=== PATIENT | male | born 1980 | race African-American/Black ===

== ENCOUNTER 2018-02-16 09:29 | Emergency (ER) | payer MEDICAID, OTHER ==
[~2018-02-16] VITALS: Ht 167.6 cm; Wt 77.6 kg
[2018-02-16 09:33] VITALS: BP 106/60; PULSE 78; RESP 20; Ht 167.6 cm; Wt 77.6 kg
[2018-02-16] MEDS ORDERED: GUAI-637 PO (09:57)
[2018-02-16] MEDS ORDERED: SODI126M NASAL (09:57)
[2018-02-16] MEDS ORDERED: IBUP-1542 PO (09:57)
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
== END 2018-02-16 10:27 | disposition home or self-care (01) ==
LOC: FTE 09:29
DX: J06.9 Acute upper respiratory infection, unspecified (principal); R40.2412 Glasgow coma scale score 13-15, at arrival to emergency department
CPT/HCPCS: 99282

== ENCOUNTER 2018-04-27 16:56 | Emergency (ER) | payer OTHER ==
[~2018-04-27] VITALS: Ht 180.3 cm; Wt 74.5 kg
[~2018-04-27 16:56] MED LIST: GUAI-637 PO; IBUP-1542 PO; SODI126M NASAL
[2018-04-27 17:13] VITALS: Ht 180.3 cm; Wt 74.5 kg
[2018-04-27] MEDS ORDERED: IBUP800T48 PO (17:57)
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
[2018-04-27 18:31] VITALS: BP 120/77; PULSE 77; RESP 16
== END 2018-04-27 18:31 | disposition home or self-care (01) ==
LOC: FTE 16:56
DX: M54.2 Cervicalgia (principal); M54.6 Pain in thoracic spine; Z87.891 Personal history of nicotine dependence
CPT/HCPCS: 99282

== ENCOUNTER 2018-10-17 11:42 | Emergency (ER) | payer OTHER ==
[~2018-10-17] VITALS: Ht 180.3 cm; Wt 72.7 kg
[~2018-10-17 11:42] MED LIST changes: +CIPR500T4 PO; +IBUP800T48 PO; +METR500T PO; +ONDA4TAB14 PO
[2018-10-17 11:45] VITALS: Ht 180.3 cm; Wt 72.7 kg
[2018-10-17 12:41] VITALS: BP 101/59; PULSE 65; RESP 18
== END 2018-10-17 12:44 | disposition home or self-care (01) ==
LOC: E/R 11:42
DX: K52.9 Noninfective gastroenteritis and colitis, unspecified (principal)
CPT/HCPCS: 99283

== ENCOUNTER 2018-11-10 11:27 | Emergency (ER) | payer OTHER ==
[~2018-11-10] VITALS: Ht 180.3 cm; Wt 70.6 kg
[~2018-11-10 11:27] MED LIST changes: -GUAI-637 PO; -IBUP-1542 PO; -IBUP800T48 PO; -SODI126M NASAL
[2018-11-10 11:36] VITALS: BP 100/55; PULSE 69; RESP 18; Ht 180.3 cm; Wt 70.6 kg
== END 2018-11-10 12:28 | disposition home or self-care (01) ==
LOC: FTE 11:27
DX: Z48.01 Encounter for change or removal of surgical wound dressing (principal)
CPT/HCPCS: 99281